=== PATIENT | female | born 1985 | race Caucasian/White ===

== ENCOUNTER 2017-04-02 08:09 | Emergency (ER) | payer MEDICAID, OTHER ==
[~2017-04-02] VITALS: Ht 160 cm; Wt 56.4 kg
[~2017-04-02 08:09] MED LIST: ALBU6.7H IH; ALBU8.5H IH; BECL8.7A6 IH; PRENATAL PO
[2017-04-02 08:44] LABS: BASOPHILS # (AUTO) 0.02 K/uL (0.00-0.20); BASOPHILS % (AUTO) 0.7 % (0.0-2.0); EOSINOPHILS # (AUTO) 0.18 K/uL (0.00-0.70); HEMATOCRIT 38.1 % (36-46); HEMOGLOBIN 12.6 g/dL (12.0-16.0); LYMPHOCYTES # (AUTO) 1.2 K/uL (1.0-4.8); LYMPHOCYTES % (AUTO) 34.7 % (22.0-44.0); MEAN CORPUSCULAR HEMOGLOBIN 30.4 pg (26.0-34.0); MEAN CORPUSCULAR VOLUME 92 fL (80-100); MONOCYTES # (AUTO) 0.4 K/uL (0.1-1.0); MONOCYTES % (AUTO) 12.4 % (2.0-9.0); NEUTROPHILS # (AUTO) 1.7 K/uL (1.8-7.7); PLATELET COUNT (AUTO) 154 K/uL (150-450); RED BLOOD CELL COUNT(AUTO) 4.14 MIL/uL (4.00-5.20); RED CELL DISTRIBUTION WIDTH 13.7 % (11.5-14.5); WHITE BLOOD COUNT (AUTO) 3.5 K/uL (4.5-11.0)
[2017-04-02 12:00] VITALS: BP 120/73
== END 2017-04-02 12:16 | disposition home or self-care (01) ==
LOC: EMS 08:11
DX: O20.0 Threatened abortion (principal); J45.909 Unspecified asthma, uncomplicated; F17.210 Nicotine dependence, cigarettes, uncomplicated; Z3A.01 Less than 8 weeks gestation of pregnancy; Z88.8 Allergy status to other drugs, medicaments and biological substances; Z88.6 Allergy status to analgesic agent
CPT/HCPCS: 76801; 76817; 99285

== ENCOUNTER 2017-06-25 08:08 | Emergency (ER) | payer OTHER ==
[~2017-06-25] VITALS: Ht 167.6 cm; Wt 59.1 kg
[~2017-06-25 08:08] MED LIST changes: -ALBU8.5H IH; +ALBU8.5H8 IH
[2017-06-25 08:16] VITALS: BP 127/83
== END 2017-06-25 12:02 | disposition home or self-care (01) ==
LOC: EMS 08:10
DX: L03.119 Cellulitis of unspecified part of limb (principal); J45.909 Unspecified asthma, uncomplicated; Z88.6 Allergy status to analgesic agent; Z91.018 Allergy to other foods; Z87.891 Personal history of nicotine dependence
CPT/HCPCS: 99281

== ENCOUNTER 2017-09-18 07:44 | Emergency (ER) | payer OTHER ==
[~2017-09-18] VITALS: Ht 160 cm; Wt 62.7 kg
[~2017-09-18 07:44] MED LIST changes: -PRENATAL PO
[2017-09-18 08:04] VITALS: BP 108/75
[2017-09-18] MEDS ORDERED: DiphenhydrAMINE HCL 25 MG CAPSULE PO ONE (08:30)
[2017-09-18] MEDS ORDERED: PredniSONE 20 MG TABLET PO ONE (08:30)
== END 2017-09-18 09:01 | disposition home or self-care (01) ==
LOC: EMS 07:45
DX: T63.481A Toxic effect of venom of other arthropod, accidental (unintentional), initial encounter (principal); J45.909 Unspecified asthma, uncomplicated; Z87.891 Personal history of nicotine dependence; Z88.5 Allergy status to narcotic agent; Z91.018 Allergy to other foods
CPT/HCPCS: 99283; J7512

== ENCOUNTER 2017-12-20 07:53 | Emergency (ER) | payer OTHER ==
[~2017-12-20] VITALS: Ht 160 cm; Wt 58.6 kg
[2017-12-20 09:40] VITALS: BP 131/79
== END 2017-12-20 09:42 | disposition home or self-care (01) ==
LOC: EMS 07:54
DX: J02.9 Acute pharyngitis, unspecified (principal); R59.0 Localized enlarged lymph nodes; J45.909 Unspecified asthma, uncomplicated; Z87.891 Personal history of nicotine dependence; Z91.018 Allergy to other foods
CPT/HCPCS: 99283

== ENCOUNTER 2018-04-11 20:54 | Emergency (ER) | payer SELFPAY ==
[~2018-04-11] VITALS: Ht 157.5 cm; Wt 59.1 kg
[2018-04-11 21:15] VITALS: BP 116/72
== END 2018-04-11 21:41 | disposition home or self-care (01) ==
LOC: EMS 20:55
DX: K04.7 Periapical abscess without sinus (principal); J45.909 Unspecified asthma, uncomplicated; Z87.891 Personal history of nicotine dependence; Z88.5 Allergy status to narcotic agent
CPT/HCPCS: 99283

== ENCOUNTER 2019-05-21 09:56 | Emergency (ER) | payer SELFPAY ==
[~2019-05-21] VITALS: Ht 160 cm; Wt 63.6 kg
[2019-05-21 09:58] VITALS: BP 134/96
[2019-05-21] MEDS ORDERED: KETOROLAC TROMETHAMINE 30 MG/ML VIAL IM ONE (13:00)
== END 2019-05-21 13:24 | disposition home or self-care (01) ==
LOC: EMS 09:58
DX: S63.502A Unspecified sprain of left wrist, initial encounter (principal); J45.909 Unspecified asthma, uncomplicated; Z88.5 Allergy status to narcotic agent; Z88.8 Allergy status to other drugs, medicaments and biological substances; Z79.899 Other long term (current) drug therapy; Z87.891 Personal history of nicotine dependence; W18.39XA Other fall on same level, initial encounter; Y93.89 Activity, other specified; Y92.89 Other specified places as the place of occurrence of the external cause; Y99.8 Other external cause status
CPT/HCPCS: 29125; 73110; 73130; 96372; 99283; 99406; J1885